=== PATIENT | female | born 1995 | race Caucasian/White ===

== ENCOUNTER → 2020-06-09 11:49 | Outpatient (CLI) | payer BC, SELFPAY ==
[2020-06-10 16:09] LABS: Covid-19 Nasal PCR Sendout Lex Not Detected
== END ==
PROVIDERS: PCP Family Medicine; Visit Provider Family Medicine
DX: Z20.828 Contact with and (suspected) exposure to other viral communicable diseases (principal)
CPT/HCPCS: U0004

== ENCOUNTER 2020-11-20 11:37 | Emergency (ER) | payer BC, SELFPAY ==
[2020-11-20 12:00] VITALS: BP 126/67; PULSE 87; RESP 18; TEMP 36.1; O2SAT 98; BMI 38.3
--- NOTE | 2020-11-20 12:22 | HMH.EDUTC ---
[facility] [place] Clinical Impression: Exposure to COVID-19 virus Disposition: Home, Self-Care Condition on Discharge: Good Instructions: DI for COVID-19 (Suspected or Confirmed ), Coronavirus Disease 2019 Additional Instructions: *Monitor Temp, Over the counter Motrin or Tylenol as directed/as needed Tylenol every 4 hours and Motrin every 6 hours (as long as your family doctor has told you that you can take it) for fever or pain. and straight to ER if unable to lower temp less than 101.0 after medication given *Warm salt water gargles may help to soothe the throat *Throat Lozenges *Warm fluids like tea with honey may help to soothe the throat *Sleep elevated *Humidifier/Vaporizer Follow up IMMEDIATELY for new or worsening symptoms or no Noticeable improvement over the next 48-72 hours. 911 for difficulty breathing or swallowing You were tested for today for COVID19 your test result should be back in the next 24-48 hours, you may call to the [facility] to see if your test results are back in the next 48 hours [phone] [facility] hours are 9am-9pm You was given a handout with instructions for Self Quarantine and Self isolation for while you wait on test results and what to do if they are positive If you are positive the Health Dept will be contacting you also Referrals: Reji Morales MD [Primary Care Provider] - As needed Forms: Work/School Release Time of Disposition: 12:28 Medical Decision Making - Folrin Inquiry Pt receiving controlled substance: No Florin was queried for this patient: No Vital Signs: 11/20/20 12:00 Temperature 97.0 F L Temperature Source Oral Pulse Rate [Right Brachial] 87 Respiratory Rate 18 Blood Pressure [Right Arm] 126/67 Blood Pressure Mean [Right Arm] 86 Blood Pressure Source [Right Arm] Automatic Cuff Blood Pressure Position [Right Arm] Sitting 02 Sat by Pulse Oximetry 98 Oxygen Delivery Method Room Air Orders (Tests/Meds): ORDERS Category Date Time Status Covid-19 Nasal PCR ([facility]) Routine Lab 11/20/20 11:44 Ordered [facility] [place] - General Stated complaint: cov test Time Seen by Provider: 11/20/20 12:22 Mode of Arrival: Ambulatory Source of Information: Patient Limitations: No Limitations Description of Symptoms (Recalled from Triage Doc. by RN): COVID TEST D/T EXPOSURE. C/O RUNNY NOSE, WEAKNESS, HEADACHE, BODY ACHES, AND SOA HEENT Symptoms (Recalled from RN notes): Yes Resp Symptoms (Recalled from RN notes): No Skin Symptoms (Recalled from RN notes): No MS Symptoms (Recalled from RN notes): No Functional Status (Recalled from RN notes): WNL - History of Present Illness Provider Complaint: Patient states that she was recently around her father States that she has since started having symptoms States that she has been having body aches, fatigue and felt a little short of breath yesterday as she was up and moving around - Related Data Allergies Allergy/AdvReac Type Severity Reaction Status Date / Time Cephalosporins Allergy Verified 11/20/20 12:21 - Worker's Comp Is this a Worker's Comp case?: No [facility] History - Hepatitis A Screen Drug use history?: No High risk sexual behaviors?: No History of sexually transmitted infection?: No Currently employed?: No Childcare worker?: No Do you have indoor plumbing?: Yes Do you have electricity?: Yes Attestation statement:: This patient has been screened for Hepatitis A risk factors. I have reviewed the patient's past medical history: Yes ROS Obtained: Yes All systems reviewed & no additional complaints, Yes Systems reviewed as appropriate & no additional complaints - Constitutional Constitutional: Reports system reviewed and no additional complaints, except as docu, Reports body ache, Reports chills, Reports fatigue, Reports headache(s) - ENT Ears, Nose, Mouth, and Throat: Reports system reviewed and no additional complaints, except as docu, Reports nasal discharge - Respiratory Respiratory: Denies cough, Report
[2020-11-20 12:48] VITALS: BP 126/67; PULSE 87; RESP 18; TEMP 36.1; O2SAT 98
== END 2020-11-20 12:52 | disposition home or self-care (01) ==
PROVIDERS: Emergency Provider Nurse Practitioner; PCP Family Medicine
DX: Z20.822 Contact with and (suspected) exposure to COVID-19 (principal); R51.9 Headache, unspecified; R53.1 Weakness; R06.02 Shortness of breath
CPT/HCPCS: 99202; G0463; U0003

== ENCOUNTER → 2021-05-27 12:00 | Outpatient (CLI) | payer BC, SELFPAY | PROVIDERS: Visit Provider Nurse Practitioner Family | DX: Z20.822 Contact with and (suspected) exposure to COVID-19 (principal) | CPT/HCPCS: U0003 ==

== ENCOUNTER 2021-10-20 09:01 | Emergency (ER) | payer OTHER, BC, SELFPAY ==
[2021-10-20 09:05] VITALS: BP 126/70; PULSE 83; RESP 19; TEMP 36.8; O2SAT 98; BMI 39.4
--- NOTE | 2021-10-20 09:19 | HMH.EDUTC ---
[facility] [place] Disposition Clinical Impression: Viral syndrome Pharyngitis Qualifiers: Pharyngitis/tonsillitis etiology: unspecified etiology Qualified Code(s): J02.9 - Acute pharyngitis, unspecified Disposition: Home, Self-Care Condition on Discharge: Good Instructions: Sore Throat, DI for Pharyngitis/Tonsillopharyngitis -- Adult, DI for Viral Syndrome, DI for COVID-19 (Suspected or Confirmed ), Preventing the Spread of Coronavirus Discharge Instructions Additional Instructions: Drink plenty of fluids. Take tylenol or ibuprofen for pain or fever. Take the medications as directed. Follow up with your regular doctor. GO TO THE ER FOR ANY WORSENING SYMPTOMS Quarantine until you know the results of your covid-19 test. Notify your school or workplace of your results and follow their instructions regarding return to work/school. Prescriptions: Brompheniramine/Pseudoephed/Dm [Bromfed Dm Cough Syrup] 5 ml PO Q6HP PRN #240 ml PRN Reason: Cough Transmission Status: Received by [facility] methylPREDNISolone [Medrol] 4 mg PO DIRECTED 6 Days #21 packet Transmission Status: Received by [facility] guaiFENesin [Mucinex 600mg tablet] 1 - 2 tab PO BIDP PRN #30 tab PRN Reason: Congestion Transmission Status: Received by [facility] Azithromycin [Z-Blaine 250mg Tab*] 250 mg PO UD DOSE PK #6 tab Transmission Status: Received by [facility] Referrals: Reji Morales MD [Primary Care Provider] - Forms: Work/School Release Time of Disposition: 09:39 Medical Decision Making - Medical Records Medical records reviewed: No: I reviewed the patient's medical records. - Florin Inquiry Pt receiving controlled substance: No Vital Signs: 10/20/21 09:05 10/20/21 09:45 Temperature 98.3 F 98.3 F Temperature Source Oral Pulse Rate 83 Pulse Rate [Left Brachial] 83 Respiratory Rate 19 19 Blood Pressure 126/70 Blood Pressure [Left Arm] 126/70 Blood Pressure Mean [Left Arm] 88 Blood Pressure Source [Left Arm] Automatic Cuff Blood Pressure Position [Left Arm] Sitting 02 Sat by Pulse Oximetry 98 Oxygen Delivery Method Room Air - Lab Data Lab results reviewed: Yes: I reviewed the patient's lab results. Lab Results 10/20/21 09:12: Group A Strep Rapid Negative Orders (Tests/Meds): ORDERS Category Date Time Status Covid-19 Nasal PCR ([facility]) Routine Lab 10/20/21 09:07 Stop Req Full Resp Panel w/COVID ([facility]) Routine Lab 10/20/21 09:33 Received Strep Screen Confirmation Stat Micro 10/20/21 09:12 Received [facility] HPI - General Stated complaint: covid symptoms/exposure Time Seen by Provider: 10/20/21 09:20 - History of Present Illness Provider Complaint: She states that for the past 2 days she has had a sore throat, sinus congestion, chest congestion, a nonproductive cough, and she has felt bad. Her son has had similar symptoms and he tested positive for rhinovirus last week. She denies any shortness or breath. She has been fully vaccinated against covid-19. She has had a flu shot this season. - Related Data Previous Rx's Medication Instructions Recorded Azithromycin [Z-Blaine 250mg Tab*] 250 mg PO UD DOSE PK #6 tab 10/20/21 Brompheniramine/Pseudoephed/Dm 5 ml PO Q6HP PRN #240 ml 10/20/21 [Bromfed Dm Cough Syrup] guaiFENesin [Mucinex 600mg tablet] 1 - 2 tab PO BIDP PRN #30 tab 10/20/21 methylPREDNISolone [Medrol] 4 mg PO DIRECTED 6 Days #21 10/20/21 packet Allergies Allergy/AdvReac Type Severity Reaction Status Date / Time Cephalosporins Allergy Verified 05/27/21 17:19 [facility] History - Hepatitis A Screen Attestation statement:: This patient has been screened for Hepatitis A risk factors. I have reviewed the patient's past medical history: Yes Other Surgeries: Yes: No Previous Surgery - Social History Smoking Status: Never smoker Alcohol Intake: never Occupational Status: employed Family Hx:: Non-contributory ROS Obtained: Yes All system
[2021-10-20 09:42] LABS: Strep Scrn Group A (Rapid) Negative (Negative)
[2021-10-20 09:45] VITALS: BP 126/70; PULSE 83; RESP 19; TEMP 36.8; O2SAT 98
[2021-10-20 09:58] LABS: Adenovirus,PCR Not Detected (NotDetected); Bordetella Pertussis Not Detected (NotDetected); Chlamydophila Pneumoniae, PCR Not Detected (NotDetected); Coronavirus 229E Not Detected (NotDetected); Coronavirus NL63 Not Detected (NotDetected); Coronavirus OC43 Not Detected (NotDetected); Coronovirus HKU1,PCR Not Detected (NotDetected); Human Metapneumovirus Not Detected (NotDetected); Influenza A, PCR Not Detected (NotDetected); Influenza AH1, 2009 Not Detected (NotDetected); Influenza AH1, PCR Not Detected (NotDetected); Influenza AH3,PCR Not Detected (NotDetected); Influenza B, PCR Not Detected (NotDetected); Mycoplasma Pneumoniae, PCR Not Detected (NotDetected); Parainfluenza 1, PCR Not Detected (NotDetected); Parainfluenza 2, PCR Not Detected (NotDetected); Parainfluenza 3, PCR Not Detected (NotDetected); Parainfluenza 4, PCR Not Detected (NotDetected); Respiratory Syncytial Virus Not Detected (NotDetected); Rhinovirus/Enterovirus Not Detected (NotDetected)
[2021-10-20 15:13] LABS: Coronavirus 19, PCR Detected (NotDetected)
[2021-10-20 19:06] LABS: UTC Influenza A Antigen Negative (Negative); UTC Influenza B Antigen Negative (Negative)
== END 2021-10-20 09:48 | disposition home or self-care (01) ==
PROVIDERS: Emergency Provider Nurse Practitioner Family; PCP Family Medicine
DX: U07.1 COVID-19 (principal); J02.9 Acute pharyngitis, unspecified
CPT/HCPCS: 87430; 87581; 87632; 87798; 87804; 99203; C9803; G0463; U0003; U0005

== ENCOUNTER 2022-04-10 15:06 | Emergency (ER) | payer OTHER, SELFPAY ==
[2022-04-10 16:05] VITALS: BP 112/63; PULSE 78; RESP 18; TEMP 36.7; O2SAT 96; BMI 40.7
--- NOTE | 2022-04-10 16:27 | HMH.EDUTC ---
[facility] – [place] Disposition Clinical Impression: Viral syndrome, Exposure to COVID-19 virus Disposition: Home, Self-Care Condition on Discharge: Good Instructions: DI for COVID-19 (Suspected or Confirmed ), Preventing the Spread of Coronavirus Discharge Instructions Additional Instructions: Drink plenty of fluids. Take tylenol for pain or fever. Return if you begin to have difficulty breathing. Follow up with your regular doctor. GO TO THE ER FOR ANY WORSENING SYMPTOMS Quarantine until you know the results of your covid-19 test. If it is positive, the health department should call you and give you further instructions about your length of Quarantine and other things. Notify your school or workplace of your results and follow their instructions regarding return to work/school. Prescriptions: Brompheniramine/Pseudoephed/Dm [Bromfed Dm Cough Syrup] 5 ml PO Q6HP PRN #240 ml PRN Reason: Cough Transmission Status: Received by [facility] Benzonatate [Benzonatate 100mg cap] 100 mg PO TIDP PRN #30 cap PRN Reason: Cough Transmission Status: Received by [facility] Referrals: Reji Morales MD [Primary Care Provider] - Time of Disposition: 16:40 Medical Decision Making - Medical Records Medical records reviewed: No: I reviewed the patient's medical records. - Florin Inquiry Pt receiving controlled substance: No Vital Signs: 04/10/22 16:05 04/10/22 16:41 Temperature 98.1 F 98.1 F Temperature Source Oral Oral Pulse Rate 80 Pulse Rate [Brachial] 78 Respiratory Rate 18 18 Blood Pressure 115/68 Blood Pressure [Right Arm] 112/63 Blood Pressure Mean [Right Arm] 79 Blood Pressure Source [Right Arm] Automatic Cuff Blood Pressure Position Sitting Blood Pressure Position [Right Arm] Sitting 02 Sat by Pulse Oximetry 96 Oxygen Delivery Method Room Air Room Air [facility] – [place] HPI - General Stated complaint: headache cough runny nose Time Seen by Provider: 04/10/22 16:31 Mode of Arrival: Ambulatory Source of Information: Patient Limitations: No Limitations Description of Symptoms (Recalled from Triage Doc. by RN): DIRECT COVID EXPOSURE WITH SYMPTOMS HEENT Symptoms (Recalled from RN notes): Yes Resp Symptoms (Recalled from RN notes): Yes Skin Symptoms (Recalled from RN notes): No MS Symptoms (Recalled from RN notes): No Functional Status (Recalled from RN notes): N/A - History of Present Illness Provider Complaint: she states that for the past 2 days she has had body aches, chills, cough, and sore throat. - Related Data Previous Rx's Medication Instructions Recorded Benzonatate [Benzonatate 100mg 100 mg PO TIDP PRN #30 cap 04/10/22 cap] Brompheniramine/Pseudoephed/Dm 5 ml PO Q6HP PRN #240 ml 04/10/22 [Bromfed Dm Cough Syrup] Allergies Allergy/AdvReac Type Severity Reaction Status Date / Time Cephalosporins Allergy Verified 04/08/22 10:43 - Worker's Comp Is this a Worker's Comp case?: No [facility] History - Hepatitis A Screen Attestation statement:: This patient has been screened for Hepatitis A risk factors. I have reviewed the patient's past medical history: Yes Laterality Cases: Bilateral: Tonsillectomy Other Surgeries: Yes: No Previous Surgery - Social History Smoking Status: Never smoker Alcohol Intake: never Occupational Status: other, employed Family Hx:: Non-contributory ROS Obtained: Yes All systems reviewed & no additional complaints - Constitutional Constitutional: Reports as per HPI - Eyes Eyes: Denies eye discharge - ENT Ears, Nose, Mouth, and Throat: Reports as per HPI - Cardiovascular Cardiovascular: Denies chest pain Physical Exam - General General appearance: alert, in no apparent distress - Head Head exam: atraumatic, normocephalic, normal inspection - Eye Eye exam: Present: normal appearance, PERRL, EOMI - ENT ENT exam: Present: normal exam, normal oropharynx, mucous membranes moist, TM's normal bilate
[2022-04-10 16:41] VITALS: BP 115/68; PULSE 80; RESP 18; TEMP 36.7; O2SAT 98
--- NOTE | 2023-03-24 12:30 | ECG_ITS ---
APPROVED REPORT Exam: Resting ECG HR:62 bpm ECG Measurements Heart Rate 62 AXES WA 157 P 56 QRSd 104 QRS 63 QT 404 T 32 QTc 409 Conclusion SINUS RHYTHM NORMAL ECG UNCONFIRMED REPORT Electronically signed by : Reji Rosado MD 04/13/2023 21:28:34
== END 2022-04-10 16:42 | disposition home or self-care (01) ==
PROVIDERS: Emergency Provider Nurse Practitioner Family; PCP Family Medicine
DX: U07.1 COVID-19 (principal)
CPT/HCPCS: 99212; C9803; G0463; U0003; U0005

== ENCOUNTER 2023-10-25 07:51 | Outpatient (CLI) | payer OTHER, SELFPAY ==
[2023-10-25 08:21] LABS: Basophils # 0.1 K/mm3 (0-0.2); Basophils % 0.9 % (0.1-2.0); Eosinophils # 0.1 K/mm3 (0.0-0.4); Eosinophils % 1.3 % (0.1-12.0); Hematocrit 44.9 % (37.0-47.0); Hemoglobin 15.3 g/dL (12.2-16.2); Lymphocytes # 1.9 K/mm3 (0.7-4.5); Lymphocytes % 18.1 % (10-50); Mean Corpuscular Hemoglobin 30.3 pg (27.0-31.2); Mean Corpuscular Volume 89.2 fl (81-99); Mean Platelet Volume 8.5 fl (7.4-10.4); Monocytes # 0.4 K/mm3 (0.1-1.0); Monocytes % 3.5 % (1.7-9.3); Neutrophils % 76.2 % (37.0-80.0); Platelet Count 317 K/mm3 (142-424); Red Blood Count 5.04 M/mm3 (4.20-5.40); Red Cell Distribution Width 13.7 % (11.5-17.5); White Blood Count 10.6 K/mm3 (4.8-10.8)
[2023-10-25 08:54] LABS: Alanine Aminotransferase 30 U/L (12-78); Albumin Level 4.3 g/dl (3.5-5.0); Albumin/Globulin Ratio 1.5 (1.1-1.8); Alkaline Phosphatase 84 U/L (38-126); Anion Gap 11.1 mEq/L (5-15); Aspartate Amino Transferase 29 U/L (14-36); Bilirubin,Total 0.8 mg/dl (0.2-1.3); Blood Urea Nitrogen 13 mg/dl (7-17); Calcium 9.6 mg/dl (8.4-10.2); Carbon Dioxide 30 mmol/L (22.0-30.0); Chloride 104 mmol/L (98-107); Chol/HDL Ratio 4.9 (1-3.5); Cholesterol 173 mg/dl (140-200); Estimated Glomerular Filt Rate 85 ml/min (>60); GFR (African American) 103 ML/MIN (>60); Globulin 2.8 g/dL (1.3-3.2); Glucose 104 mg/dl (74-100); HDL Cholesterol 35 mg/dl (40-60); Potassium 4.1 mmoL/L (3.5-5.1); Sodium 141 mmol/L (136-145); Total Protein,Serum 7.1 g/dl (6.3-8.2); Triglycerides 143 mg/dl (30-150); VLDL Cholesterol 29 mg/dL (0-40)
[2023-10-25 09:04] LABS: Direct LDL Cholesterol 95.52 mg/dL (100-129)
[2023-10-25 09:09] LABS: 25-OH Vitamin D, Total 38.5 ng/mL (30-100)
[2023-10-25 09:10] LABS: T4 (Thyroxine) 12.1 ug/dl (5.53-11.0)
[2023-10-25 09:24] LABS: Thyroid Stimulating Hormone 3.29 uIU/mL (0.465-4.68)
[2023-10-25 09:43] LABS: Vitamin B12 826 pg/mL (239-931)
[2023-10-25 09:53] LABS: Hemoglobin A1C 5.4 % (4.0-6.0)
[2023-10-25 10:28] LABS: Ferritin 87.3 ng/ml (6.24-137)
[2023-10-26 10:03] LABS: Estradiol 25.7 pg/mL (.); LH 5.2 mIU/mL (.); Progesterone 0.1 ng/mL (.); Triiodothyronine (T3) Free 3.7 pg/mL (2.0-4.4)
[2023-10-26 10:13] LABS: Insulin Level Total 14.5 uIU/mL (2.6-24.9)
[2023-11-03 22:19] LABS: Free Testosterone (Direct) 3.1 pg/mL (0.0-4.2); Testosterone, Total, LC/MS 30.5 ng/dL (10.0-55.0)
[2023-11-04 10:29] LABS: Antinuclear Antibodies (ANA) NEGATIVE
== END 2023-10-25 23:59 ==
PROVIDERS: PCP Nurse Practitioner Family; Visit Provider Nurse Practitioner Family
DX: L65.9 Nonscarring hair loss, unspecified (principal); E28.2 Polycystic ovarian syndrome; N92.6 Irregular menstruation, unspecified; R63.5 Abnormal weight gain; Z79.899 Other long term (current) drug therapy
CPT/HCPCS: 36415; 80053; 80061; 82306; 82607; 82670; 82728; 83001; 83002; 83036; 83525; 84144; 84436; 84443; 84481; 85025; 86038; 86225; 86235

== ENCOUNTER 2023-12-06 18:13 | Outpatient (CLI) | payer OTHER, SELFPAY ==
[2023-12-06 17:56] LABS: Adenovirus,PCR Not Detected (NotDetected); Coronavirus 19, PCR Not Detected (NotDetected); Coronavirus 229E Not Detected (NotDetected); Coronavirus NL63 Not Detected (NotDetected); Coronavirus OC43 Not Detected (NotDetected); Coronovirus HKU1,PCR Not Detected (NotDetected); Human Metapneumovirus Not Detected (NotDetected); Influenza A, PCR Not Detected (NotDetected); Influenza AH1, 2009 Not Detected (NotDetected); Influenza AH1, PCR Not Detected (NotDetected); Influenza AH3,PCR Not Detected (NotDetected); Influenza B, PCR Not Detected (NotDetected); Parainfluenza 1, PCR Not Detected (NotDetected); Parainfluenza 2, PCR Not Detected (NotDetected); Parainfluenza 3, PCR Not Detected (NotDetected); Parainfluenza 4, PCR Not Detected (NotDetected); Respiratory Syncytial Virus Not Detected (NotDetected); Rhinovirus/Enterovirus Not Detected (NotDetected)
== END 2023-12-06 23:59 ==
LOC: LAB.DROPOF 18:13
PROVIDERS: PCP Nurse Practitioner Family; Visit Provider Nurse Practitioner Family
DX: J02.9 Acute pharyngitis, unspecified; R05.8 Other specified cough; R06.00 Dyspnea, unspecified; R19.7 Diarrhea, unspecified; R09.82 Postnasal drip
CPT/HCPCS: 87070; 87632; 87635

== ENCOUNTER 2024-10-02 14:41 | Outpatient (CLI) | payer OTHER, SELFPAY ==
--- NOTE | 2024-10-02 14:42 | US_ITS ---
PROCEDURE INFORMATION: Exam: US Right Breast, Complete Exam date and time: 10/02/2024 3:04 PM Age: 29 years old Clinical indication: Palpable right axillary lump. TECHNIQUE: Imaging protocol: Complete ultrasound of all four quadrants of the right breast and the retroareolar regions, including ultrasound of the axilla when performed. COMPARISON: No relevant prior studies available. FINDINGS: ULTRASOUND: Breast ultrasound findings: In the area of concern, right breast 11 o'clock axis, 13 cm from the nipple, there is no underlying mass, distortion, or shadowing. The right axilla demonstrates no axillary adenopathy. IMPRESSION: 1. No sonographic evidence of malignancy to correlate to the palpable area of concern. Further evaluation of a palpable abnormality should be based on clinical grounds regardless of radiographic findings or lack thereof. 2. If the palpable area of concern persists, consider diagnostic mammography. ASSESSMENT: BI-RADS Category 1: Negative.
== END 2024-10-02 23:59 | disposition home or self-care (01) ==
LOC: RAD 14:42
PROVIDERS: PCP Nurse Practitioner Family; Visit Provider Obstetrics & Gynecology
DX: N63.11 Unspecified lump in the right breast, upper outer quadrant (principal)
CPT/HCPCS: 76641

== ENCOUNTER 2024-11-28 15:49 | Outpatient (CLI) | payer OTHER, SELFPAY ==
[2024-11-28 21:21] LABS: Coronavirus 19, PCR Not Detected (NotDetected); Human Rhinovirus Not Detected (NotDetected); Influenza B, PCR Not Detected (NotDetected); Respiratory Syncytial Virus Not Detected (NotDetected)
[2024-11-29 00:20] LABS: Influenza A, PCR Detected (NotDetected)
== END 2024-11-28 23:59 | disposition home or self-care (01) ==
LOC: LAB.DROPOF 11-29 10:23
PROVIDERS: PCP Internal Medicine; Visit Provider Internal Medicine
DX: J06.9 Acute upper respiratory infection, unspecified (principal); H65.193 Other acute nonsuppurative otitis media, bilateral; R53.83 Other fatigue
CPT/HCPCS: 87631